=== PATIENT | female | born 1985 | race Caucasian/White ===

== ENCOUNTER 2023-06-26 18:14 | Inpatient (IN) | payer BC, SELFPAY ==
--- NOTE | 2023-06-26 18:26 | W.ED.PSYCHS ---
HPI - Psych General: Chief Complaint: Psychiatric Symptoms Stated Complaint: / 96 Hold Time Seen by Provider: 06/26/23 18:16 Source: patient Mode of arrival: ambulatory Limitations: no limitations History of Present Illness: 27 yo female that is here with police under a 96 hour hold. She states she has been having relationship issues and has been drinking. She states she has had increased depression and has made states she wants to shoot herself. Denies any worsening or improving factors. No previous admission. Associated symptoms: Reports depression and suicidal ideation Review of Systems Const: Denies: fever(s), chills, body aches or change in appetite ENMT: Denies: throat pain or dental pain Card: Denies: chest pain Resp: Denies: dyspnea GI: Denies: abdominal pain, nausea, vomiting or diarrhea : Denies: dysuria Musc: Denies: neck pain or back pain Skin/Breast: Denies: rash Neuro: Denies: headache(s) Psych: Reports: depression and suicidal ideation Physical Exam Const: COMMON NORMALS: no acute distress, patient oriented x3 and healthy appearing HENMT: COMMON NORMALS: normocephalic and atraumatic HEAD & SCALP: normocephalic and atraumatic Eye: COMMON NORMALS: conjunctivae normal CONJUNCTIVA: Yes conjunctivae normal Neck/C-Spine: COMMON NORMALS: full ROM and supple Chest: COMMONS NORMALS: normal inspection of the chest Resp: COMMON NORMALS: normal respiratory effort Cardio: COMMON NORMALS: regular rate, regular rhythm and No murmurs present (Cardio) RATE: regular rate RHYTHM: regular rhythm GI: INSPECTION: Yes normal to inspection Extremity: COMMON NORMALS: normal to inspection and full ROM Neuro: COMMON NORMALS: patient oriented x3, moves all extremities and no focal motor deficits Psych: COMMON NORMALS: mental status grossly normal, Normal thought process present and cooperative MOOD & AFFECT: Yes depressed mood THOUGHT PROCESS: Normal thought process present THOUGHT CONTENT: Yes Suicidality present Skin: COMMON NORMALS: no rashes or lesions noted and no wounds GENERAL SKIN EXAM: no rashes or lesions noted Course Vital Signs: Vital signs: Vital Signs Respiratory Rate 18 06/26/23 18:27 Blood Pressure 142/73 06/26/23 18:27 Pulse Oximetry 98 06/26/23 18:27 Oxygen Delivery Me thod Room Air 06/26/23 18:27 MDM - Psych Medical Decision Making pt present here with SI. She is under a 96 hour hold. She is medically cleared and i spoke to Dr. Nj and will admit to NPU Medical Records I reviewed the patient's medical records. Lab Data I reviewed the patient's lab results. 06/26/23 18:43 06/26/23 18:43 Laboratory Results WBC 6.2 10^3/uL (4.0-10.0) 06/26/23 18:43 RBC 4.31 10^6/uL (4.1-5.3) 06/26/23 18:43 Hgb 13.1 g/dL (11.5-15.3) 06/26/23 18:43 Hct 40.5 % (37.0-47.0) 06/26/23 18:43 MCV 94.0 fl (81-99) 06/26/23 18:43 MCH 30.4 pg (28.0-34.0) 06/26/23 18:43 MCHC 32.3 g/dL (30.0-36.0) 06/26/23 18:43 RDW 14.6 % (12.1-15.1) 06/26/23 18:43 Plt Count 302 10^3/cmm (130-400) 06/26/23 18:43 MPV 9.0 fL (7.4-10.4) 06/26/23 18:43 Neut % (Auto) 62.4 % 06/26/23 18:43 Lymph % (Auto) 27.1 % 06/26/23 18:43 [place] % (Auto) 8.6 % 06/26/23 18:43 Eos % (Auto) 1.1 % 06/26/23 18:43 Baso % (Auto) 0.3 % 06/26/23 18:43 Neut # (Auto) 3.84 10^3/uL (1.8-7.7) 06/26/23 18:43 Lymph # (Auto) 1.7 10^3/uL (0.8-4.8) 06/26/23 18:43 [place] # (Auto) 0.5 10^3/uL (0.2-0.9) 06/26/23 18:43 Eos # (Auto) 0.1 10^3/uL (0.0-0.8) 06/26/23 18:43 Baso # (Auto) 0.0 10^3/uL (0.0-0.1) 06/26/23 18:43 Nucleated RBC % (auto) 0 % 06/26/23 18:43 Nucleated RBCs # 0.0 /100WBC 06/26/23 18:43 Sodium 136 mmol/L (136-145) 06/26/23 18:43 Potassium 3.3 mmol/L (3.5-5.1) L 06/26/23 18:43 Chloride 99 mmol/L (98-107) 06/26/23 18:43 Carbon Dioxide 24 mmol/L (22-29) 06/26/23 18:43 Anion Gap 16.3 (5-19) 06/26/23 18:43 BUN 14 mg/dL (6-20) 06/26/23 18:43 Creatinine 0.6 mg/dL (0.5-0.9) 06/26/23 18:43 GFR Calculation 118.2 mL/min (90-130) 06/26/23 18:43 Glucose 97 mg/dL (65-115) 06/26/23 18:43 Calculated Osmolality 282 mOsm/kg (285-295) L 06/26/23 18:43 Calcium 9.4 mg/dL (8.5-10.5) 06/26/23 18:43 Total Bilirubin 0.3 mg/dL (0.15-1.2) 06/26/23 18:43 AST 28 U/L (0-32) 06/26/23 18:43 ALT 10 U/L (0-33) 06/26/23 18:43 Alkaline Phosphatase 101 U/L (35-105) 06/26/23 18:43 Total Protein 7.4 g/dL (6.6-8.7) 06/26/23 18:43 Albumin 4.1 g/dL (3.5-5.2) 06/26/23 18:43 Globulin 3.3 g/dL (1.3-4.6) 06/26/23 18:43 HCG, Qual Negative (Negative) 06/26/23 18:25 Salicylates < 0.3 mg/dL (3-10) L 06/26/23 18:43 Urine Opiates Screen Negative ng/mL (Negative) 06/26/23 18:25 Acetaminophen < 5.0 ug/mL (10-30) L 06/26/23 18:43 Ur Barbiturates Screen Negative ng/mL (Negative) 06/26/23 18:25 Ur Phencyclidine Scrn Negative ng/mL (Negative) 06/26/23 18:25 Ur Amphetamines Screen Negative ng/mL (Negative) 06/26/23 18:25 U Benzodiazepines Scrn Negative ng/mL (Negative) 06/26/23 18:25 Urine Cocaine Screen Negative ng/mL (Negative) 06/26/23 18:25 U Marijuana (THC) Screen Positive ng/mL (Negative) H 06/26/23 18:25 Ethyl Alcohol < 10 mg/dL (0-10) 06/26/23 18:43 Discharge Plan Discharge Patient Disposition: Admitted As Inpatient Clinical Impression: Suicidal ideation Condition: Stable Coding Level of Care Code ED [employer] for [employer] Wilson
[2023-06-26 18:27] VITALS: BP 142/73; RESP 18; O2SAT 98
[2023-06-26 18:37] LABS: HCG Qualitative Urine. Negative (Negative)
[2023-06-26 18:41] LABS: Amphetamines Screen Urine Negative (Negative); Barbiturates Screen Urine Negative (Negative); Benzodiazepines Screen Urine Negative (Negative); Cocaine Screen Urine Negative (Negative); Opiate Screen Urine Negative (Negative); PCP Screen Urine Negative (Negative); THC Screen Urine Positive (Negative)
[2023-06-26 18:53] LABS: Basophils % 0.3 %; Eosinophils # 0.1 10^3/uL (0.0-0.8); Eosinophils % 1.1 %; Hematocrit 40.5 % (37.0-47.0); Hemoglobin 13.1 g/dL (11.5-15.3); Lymphocytes # 1.7 10^3/uL (0.8-4.8); Lymphocytes % 27.1 %; Mean Corpuscular HGB Conc 32.3 g/dL (30.0-36.0); Mean Corpuscular Hemoglobin 30.4 pg (28.0-34.0); Monocytes # 0.5 10^3/uL (0.2-0.9); Monocytes % 8.6 %; Neutrophils # 3.84 10^3/uL (1.8-7.7); Neutrophils % 62.4 %; Nucleated Red Blood Cells % 0 %; Platelet Count 302 10^3/cmm (130-400); Red Blood Count 4.31 10^6/uL (4.1-5.3); Red Cell Distribution Width 14.6 % (12.1-15.1); White Blood Count 6.2 10^3/uL (4.0-10.0)
--- NOTE | 2023-06-26 19:00 | PC.NURSE ---
Patient brought in by Reddy Lieberman on a 96 hour hold. 96 hour holds rights reviewed with patient copy given to patient. Patient verbalized understandings.
[2023-06-26 19:19] LABS: Acetaminophen < 5.0 ug/mL (10-30); Alanine Aminotransferase 10 U/L (0-33); Albumin Level 4.1 g/dL (3.5-5.2); Alcohol Level < 10 mg/dL (0-10); Alkaline Phosphatase 101 U/L (35-105); Anion Gap 16.3 (5-19); Aspartate Amino Transferase 28 U/L (0-32); Blood Urea Nitrogen 14 mg/dL (6-20); Calcium 9.4 mg/dL (8.5-10.5); Carbon Dioxide 24 mmol/L (22-29); Chloride 99 mmol/L (98-107); Globulin 3.3 g/dL (1.3-4.6); Glomerular Filtration Rate 118.2 mL/min (90-130); Glucose 97 mg/dL (65-115); Osmolality Calculated 282 mOsm/kg (285-295); Potassium 3.3 mmol/L (3.5-5.1); Salicylate < 0.3 mg/dL (3-10); Sodium 136 mmol/L (136-145); Total Bilirubin 0.3 mg/dL (0.15-1.2); Total Protein 7.4 g/dL (6.6-8.7)
[2023-06-26 19:54] VITALS: BP 144/72; PULSE 78; RESP 18; O2SAT 98
[2023-06-26 20:04] VITALS: BP 146/92; PULSE 99; RESP 20; TEMP 36.6; O2SAT 100
[2023-06-26 21:00] VITALS: BP 146/92; PULSE 99; RESP 20; TEMP 36.6; O2SAT 100; BMI 19.5
--- NOTE | 2023-06-26 21:21 | PC.NURSE ---
Pt arrived from ER w/nurse and security at side. Pt cooperative w/assessment, however pt is paranoid and delusional. 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 Shower curtain taken down by staff so that pt can see inside the shower that there was no grunge inside of it. Pt provided drinks and a snack per her request. Will con't to monitor.
[2023-06-26] MEDS: OLANZapine 5 mg ODT PO (22:38)
[2023-06-26] MEDS: nicotine 2 mg Gum BUCCAL (22:38)
[2023-06-27 06:00] VITALS: BP 113/77; PULSE 89; RESP 16; O2SAT 99
--- NOTE | 2023-06-27 09:34 | PC.NURSE ---
During morning assessment, patient states that she is feeling good . Patient states that she has some mild anxiety, but denies depression, SI, HI, AVH.
[2023-06-27] MEDS: hyDROXYzine 25 mg Capsule 50 MG PO (09:41)
[2023-06-27] MEDS: OLANZapine 5 mg ODT PO (12:27)
[2023-06-27 14:00] VITALS: BP 110/76; PULSE 107; RESP 18; TEMP 36.4; O2SAT 98
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
[2023-06-27] MEDS: nicotine 2 mg Gum BUCCAL ×2 (15:32→23:39)
[2023-06-27 20:59] VITALS: PULSE 82; RESP 19; TEMP 36.7; O2SAT 97
--- NOTE | 2023-06-28 03:33 | PC.NURSE ---
Pt came to this nurses demanding to be d/c'd due to nothing being done for her at this time, and the physician told her she was doing fine. Pt refuses medications for anxiety. Explained the 96 hr hold and who brought her to the ER for admit. Pt became more agitated stating that she was just going to leave, because no one is home with her children, who are 20 and 17. Explained to the pt that we could have the police do a welfare check on her children and she refused. Notified security of pts threats to try to elope. One on one care provided, unsuccessfully however the pt decided to return to her room. Will con't to monitor.
[2023-06-28 06:00] VITALS: BP 114/76; PULSE 81; RESP 16; O2SAT 99
--- NOTE | 2023-06-28 08:35 | PC.NURSE ---
Patient states that she is anxious because she is worried about her kids at home. She also states that she is anxious because she doesn't know when she is going to leave the unit. Patient went on to say, but it will be okay .
[2023-06-28] MEDS: hyDROXYzine 25 mg Capsule 50 MG PO (09:40)
[2023-06-28] MEDS: nicotine 2 mg Gum BUCCAL ×2 (09:41→16:02)
[2023-06-28 14:00] VITALS: BP 104/70; PULSE 80; RESP 16; TEMP 36.7; O2SAT 97
--- NOTE | 2023-06-28 14:37 | W.PM.NPUPNS ---
Subjective NPU Subjective: 37-year-old white female admitted with depression and suicidal ideation with a noted history of significant alcohol consumption. Patient had requested to leave today. She had minimized any thoughts of hurting herself or others. She had reported no interest in receiving help for her alcohol use. She had denied having desire to communicate with her therapist. She was pleasant and calm on the milieu and appeared in no acute distress. She was minimally involved in groups. Mental Status Exam MSE Comments: She is a casually dressed thin white female with a normal complexion was alert and oriented to person place and time. She was in mild distress. Her gait was adequate. Her hygiene was improved. There is no evidence of any abnormal involuntary motor movements tics or tremors appreciated. Her speech was normal in regards to rate rhythm and prosody. Her mood was described as good. Her affect was superficially bright. Her thought process was linear logical and goal directed. Her thought content showed no evidence of active homicidal or suicidal ideation. She did not appear to be responding to internal stimuli. There is no clear evidence of delusional thinking. Her attention span appeared fair. Her insight is poor. Her judgment is limited. Her impulse control appeared limited. Her recent and remote memory appeared grossly intact. Vitals/I&O/Wt Last Vital Signs Temp 98.3 F 06/29/23 13:39 Pulse 93 06/29/23 13:39 Resp 16 06/29/23 13:39 BP 131/90 06/29/23 13:39 Pulse Ox 98 06/29/23 13:39 O2 Del Method Room Air 06/29/23 06:00 Data NPU 06/26/23 18:43 06/26/23 18:43 A&P Assessment and plan (1) Depression, unspecified: (2) Suicidal ideation: (3) Alcohol abuse: Plan This is a 37-year-old white female with a history of alcohol abuse admitted with depressed mood and suicidal ideation on a 96-hour hold. She appears to be minimizing having any problems but does appeared high risk for having alcohol dependence with minimal motivation to currently get treatment. ?1. Encourage individual, group and milieu therapy. ?2.Recommend sober living treatment at the highest level of care to which the patient is willing to commit. 3.Continue q-15 minute checks for safety.? 4. We will attempt to gather collateral information from family. She may benefit from drug and alcohol treatment on an outpatient basis. 5. Plan to discharge today or tommorow. Involuntary Hold Information 96 Hour Hold: 96 Hour Involuntary Admission: Yes 96 Hour Hold Ending Date: 07/02/23 96 Hour Hold Ending Time: 18:29 Attestations NPU Medical Necessity Statement*: Inpatient hospitalization is medically necessary and deemed to be the clinically appropriate intervention at this time. She will be monitored and medications will be initiated as indicated. Her likely length of stay is 1-2 days. Coding Level of Care Code Acute Code for [facility] Fwd Diagnoses Depression, unspecified F32.A Suicidal ideation R45.851 Alcohol abuse F10.10
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
[2023-06-28 16:03] VITALS: BP 104/70; PULSE 80; RESP 16; TEMP 36.7; O2SAT 97
[2023-06-28 20:08] VITALS: BP 119/86; PULSE 74; RESP 18; O2SAT 99
[2023-06-29] MEDS: nicotine 2 mg Gum BUCCAL ×2 (02:51→11:23)
--- NOTE | 2023-06-29 04:12 | PC.NURSE ---
Patient has been awaiting transportation from her boyfriend that did not show up to get her this shift. Patient father aware that patient has been discharged. Patient has been pleasant and cooperative this shift. She interacts appropriately with staff and patients and is meal and medication compliant.
[2023-06-29] MEDS: hyDROXYzine 25 mg Capsule 50 MG PO (05:39)
--- NOTE | 2023-06-29 05:49 | PC.NURSE ---
Per discussion with patient father, father received messages on his home phone from case management. He did not see these messages until around 0300 this morning. Patient is concerned that we had discharged patient without transportation. Father voiced concerns regarding patient readiness to be discharged. Father reports that patient and left her car in the middle of the highway and found walking down the highway in a t shirt then was subsequently taken into custody. He also reports that patient regularly states that she is getting ready for a date that never shows. He reports patient is frequently paranoid, that patient says that people are watching her and drones are following her around. He reports one week ago patient walked into director business travel office and asked the director business travel why he was following her. Fathers cell phone number is [phone].
[2023-06-29 06:00] VITALS: BP 143/96; PULSE 77; RESP 17; O2SAT 99
--- NOTE | 2023-06-29 06:07 | PC.NURSE ---
Dr. Siddiqui notified of patient not being discharged due to transportation issues this shift.
[2023-06-29 06:57] VITALS: BP 121/86
--- NOTE | 2023-06-29 09:08 | PC.NURSE ---
Pt has been calm and cooperative while waiting on a ride.
[2023-06-29 13:39] VITALS: BP 131/90; PULSE 93; RESP 16; TEMP 36.8; O2SAT 98
== END 2023-06-29 15:36 | disposition home or self-care (01) | DRG 881 ==
LOC: ER 19:44 → NP 19:52
PROVIDERS: Admitting Provider Psychiatry & Neurology Psychiatry; Emergency Provider Emergency Medicine; Visit Provider Psychiatry & Neurology Psychiatry
DX: F32.A Depression, unspecified (principal); R45.851 Suicidal ideations; F10.10 Alcohol abuse, uncomplicated
CPT/HCPCS: 36415; 80053; 80306; 80307; 81025; 85025; 97165; 99238; 99285